=== PATIENT | female | born 1990 | race American Indian/Alaskan Native ===

== ENCOUNTER 2018-10-10 02:15 | Emergency (ER) | payer BC ==
[2018-10-10] MEDS ORDERED: Sodium Chloride 0.9% 1,000 ML IV SCH (02:45)
--- NOTE | 2018-10-10 02:51 | ED PDOC ---
HPI: Headache Time Seen by Provider: 10/10/18 02:29 Chief Complaint (Nursing): Headache Chief Complaint (Provider): SINGLETARY History Per: Patient, Family (boyfriend) History/Exam Limitations: intoxication Associated Symptoms: Photophobia, Nausea, Vomiting. denies: Blurred Vision Additional Complaint(s): 27 y/o Female with allergy to NSAIDS, hx of Migraines and asthma as a child who presents with worst SINGLETARY of her life. Pt was drinking alcohol tonight and began developing a migraine. She admits to photophobia and nausea. She states pain is 15/10 and states that she is having some Right sided weakness. Denies dizziness, no head trauma. Hx partially obtained from patient's boyfriend who is at her side. Past Medical History Reviewed: Historical Data, Nursing Documentation, Vital Signs Vital Signs: Last Vital Signs Temp 97.9 F 10/10/18 02:29 Pulse 94 H 10/10/18 02:29 Resp 18 10/10/18 02:29 BP 129/107 H 10/10/18 02:29 Pulse Ox 100 10/10/18 02:29 - Medical History PMH: Migraine - Family History Family History: States: Unknown Family Hx - Home Medications Home Medications: Ambulatory Orders Medication Instructions Recorded Acetaminophen/Butalbital/Caf 1 tab PO Q4H PRN 7 Days tab 10/10/18 [Fioricet] - Allergies Allergies/Adverse Reactions: Allergies Allergy/AdvReac Type Severity Reaction Status Date / Time aspirin Allergy ANAPHYLAXIS Verified 10/10/18 02:29 Penicillins Allergy ANAPHYLAXIS Verified 10/10/18 02:29 Physical Exam - Reviewed Nursing Documentation Reviewed: Yes Vital Signs Reviewed: Yes - Physical Exam Appears: Positive for: Uncomfortable (pt unable to cooperate fully with exam due to intoxication. ) Head Exam: Positive for: ATRAUMATIC Eye Exam: Positive for: EOMI, PERRL, Conjunctival injection (B/L) ENT: Positive for: Normal ENT Inspection Neurologic/Psych: Positive for: Alert (somnolent), Oriented (x 3), Motor/Sensory Deficits (strength = in B/L upper and lower extremities. ), Gait. Negative for: Aphasia, Facial Droop - Laboratory Results Result Diagrams: 10/10/18 03:05 10/10/18 03:05 - ECG O2 Sat by Pulse Oximetry: 100 Medical Decision Making Medical Decision Making: CBC, BMP, serum alcohol Urine preg CT head w/o contrast NS 1L IV Reglan 10mg IV 5:15am: Re-evaluated: sleeping comfortably, K = 3.1 given K-Dur 40meq PO x 1. 6:45am: re-evaluated, patient ambulated and continues to have a mildly unsteady gait and continues to have very mild SINGLETARY. Will give an additional 500mL NS bolus and monitor for clinical sobriety. 7:20am: re-evaluated, pt ambulating with steady gait, awake and oriented, SINGLETARY has improved. Stable for d/c home with return instructions given. Disposition - Clinical Impression Clinical Impression: Migraine - Patient ED Disposition Is Patient to be Admitted: No Counseled Patient/Family Regarding: Studies Performed, Diagnosis, Need For Fol lowup, Rx Given - Disposition Disposition: Routine/Home Disposition Time: 07:34 Condition: STABLE Additional Instructions: f/u with your primary care doctor or neurologist in [facility] for further evaluation. Stay well hydrated. Take Fioricet as needed for headaches. Return to ER if your headache worsens again or you begin to have trouble with your vision, ability to walk or weakness on one side of your body. Prescriptions: Acetaminophen/Butalbital/Caf [Fioricet] 1 tab PO Q4H PRN 7 Days tab PRN Reason: Headache Instructions: Migraine Headache (DC) Forms: [employer] (Chinese) Print Language: PANAMANIAN
[2018-10-10 03:37] LABS: BASO % 0.5 % (0.0-2.0); EOS # 0.6 K/uL (0.0-0.7); EOS % 7.7 % (0.0-4.0); LYMPH # 3.4 K/uL (1.0-4.3); LYMPH % 42.3 % (20.0-40.0); MEAN CELL VOLUME 84.9 fl (81.0-99.0); MEAN CORPUSCULAR HEMOGLOBIN 26.7 pg (27.0-31.0); MEAN CORPUSCULAR HGB CONC 31.4 g/dL (33.0-37.0); MEAN PLATELET VOLUME 8.8 fl (7.2-11.7); MONO # 0.6 K/uL (0.0-0.8); MONO % 7.1 % (0.0-10.0); NEUT # 3.4 K/uL (1.8-7.0); NEUT % 42.4 % (50.0-75.0); NRBC % 0.2 % (0.0-0.0); RBC 4.12 Mil/uL (3.80-5.20); RED CELL DISTRIBUTION WIDTH 15.7 % (11.5-14.5)
[2018-10-10 03:48] LABS: BLOOD UREA NITROGEN 15 mg/dl (7-17); CALCIUM 8.8 mg/dL (8.4-10.2); GFR NON-AFRICAN AMERICAN > 60
[2018-10-10] MEDS ORDERED: Potassium Chloride 20 mEq ER Tab PO ONE ×2 (04:57→06:50)
[2018-10-10] MEDS ORDERED: Sodium Chloride 0.9% 500 ML IV STA (06:53)
[2018-10-10 08:35] VITALS: BP 109/65; PULSE 79; RESP 18; TEMP 98.2; O2SAT 99
--- NOTE | 2018-10-10 10:33 | CT ---
Date of service: 10/10/2018 PROCEDURE: CT HEAD WITHOUT CONTRAST. HISTORY: worst SINGLETARY of her life COMPARISON: None available. TECHNIQUE: Axial computed tomography images were obtained through the head/brain without intravenous contrast. Radiation dose: Total exam DLP = 765.11 mGy-cm. This CT exam was performed using one or more of the following dose reduction techniques: Automated exposure control, adjustment of the mA and/or kV according to patient size, and/or use of iterative reconstruction technique. FINDINGS: HEMORRHAGE: No intracranial hemorrhage. BRAIN: No mass effect or edema. No atrophy or chronic microvascular ischemic changes. VENTRICLES: Ventricles are prominent however there is no evidence obstructive hydrocephalus. CALVARIUM: Unremarkable. PARANASAL SINUSES: Frontal sinuses-atretic.. The maxillary antra hypoplastic both of which exhibit opacification. The ethmoid sinus also hypoplastic with mucosal thickening. MASTOID AIR CELLS: Unremarkable as visualized. No inflammatory changes. OTHER FINDINGS: None. IMPRESSION: No acute intracranial hemorrhage.
== END 2018-10-10 08:33 | disposition home or self-care (01) ==
LOC: H.ER 02:15
DX: G43.909 Migraine, unspecified, not intractable, without status migrainosus (principal); Z88.0 Allergy status to penicillin
CPT/HCPCS: 70450; 80048; 81025; 85025; 96361; 96374; 99285; G0480; J2765; J7030; J7040